=== PATIENT | male | born 1960 | race Caucasian/White ===

== ENCOUNTER 2018-11-26 06:05 | Observation (INO) | payer BC ==
[~2018-11-26] VITALS: Ht 175.3 cm; Wt 78.6 kg
[~2018-11-26 06:05] MED LIST: MELOXICAM7.5 MG PO; PANTOPRAZOLE SO40 MG PO
[2018-11-26] MEDS ORDERED: GENTAMICIN 120MG/NS 100ML 100 ML ONE (07:10)
[2018-11-26] MEDS ORDERED: CLINDAMYCIN 300MG 50 ML IV ONE (07:10)
[2018-11-26] MEDS ORDERED: FENTANYL CITRATE/PF 100MCG/2 ML INJ ONE ×3 (08:02→18:43)
[2018-11-26] MEDS ORDERED: HYDROMORPHONE 2MG/ML 2 MG/ML ML ONE (08:16)
[2018-11-26] MEDS ORDERED: BUPIVACAINE 0.25%/EPI 30ML SDV INJ ONE (08:54)
[2018-11-26] MEDS ORDERED: BUPIVACAINE LIPOSOME/PF 266 MG/20 ML IJ ONE (08:55)
[2018-11-26] MEDS ORDERED: LIDOCAINE JELLY 2% 10ML URO-JET ONE (08:55)
[2018-11-26] MEDS ORDERED: LIDOCAINE HCL 1% 30ML-PF VIAL ONE (08:55)
[2018-11-26] MEDS ORDERED: HYDROMORPHONE 1MG/1ML INJ IV PRN (11:30)
[2018-11-26] MEDS ORDERED: HYDROCODONE/APAP 7.5MG-325MG 1 EA TAB PO PRN (11:30)
[2018-11-26] MEDS ORDERED: PANTOPRAZOLE 40 MG 10ML VIAL IV SCH (11:30)
[2018-11-26] MEDS ORDERED: ONDANSETRON HCL INJ 2MG/ML 2ML 2 MG/ML VIAL IV PRN (11:30)
[2018-11-26] MEDS ORDERED: HYDROMORPHONE 2MG/ML 2 MG/ML ML IV PRN (12:15)
--- NOTE | 2018-11-26 12:19 | Operative Report ---
DATE OF PROCEDURE: 11/26/2018 SURGEON: Son Tenorio MD PREOPERATIVE DIAGNOSIS: Rectal bleeding, status post prostatic biopsy. POSTOPERATIVE DIAGNOSIS: Rectal bleeding, status post prostatic biopsy. OPERATION PERFORMED: Over-sewing of bleeder of the rectum. ANESTHESIA: General. COMPLICATIONS: None. ESTIMATED BLOOD LOSS: Minimal DESCRIPTION OF PROCEDURE: With the patient lying in bed in the lithotomy position under good general anesthesia, the perineum was prepped with Betadine solution and draped in the usual manner. Examination of the rectum at this point revealed the presence of a potential clot in the rectal vault, so all of this was aspirated. Examination revealed immediately that around the 1 o'clock position, there was a small arterial bleeder coming from one of the puncture sites of the prostate biopsy. There was no bleeding coming from any of the hemorrhoids or anything this was coming from the rectal mucosa, probably a submucosal arterial bleeder of the rectum. This was clearly isolated and visualized, and he was then oversewn with a [id number] ligature of 0 Vicryl. There was a couple of other puncture sites to the right and the left of the bleeder and we decided to oversew these to prevent any kind of bleeding that could occur in a submucosal space and this was similarly oversewn with 0 Vicryl. After this was done, hemostasis was ascertained. We waited a few minutes and make sure there was absolutely no other bleeding. The rectal vault was then washed out with saline and no further bleeding was identified anywhere else. A Gelfoam pack impregnated with Xylocaine was placed. A complete anorectal block with 0.25% Marcaine and 1% lidocaine had been performed previously. A dressing was applied. The sponge, lap, and needle counts were correct. The patient tolerated the procedure well and returned to the recovery room in stable condition. Son Tenorio MD JLR/MODL /[id number]
[2018-11-26] MEDS: DEXTROSE 5%/LACTATED RINGERS 1,000 ML IV SCH ×2 (12:27→20:19)
[2018-11-26 12:28] VITALS: BP 146/79
[2018-11-26 12:32] VITALS: BP 146/79
--- NOTE | 2018-11-26 12:42 | NUR ---
patient received from OR via stretcher. see admit assess. D5LR at 100cc/hr. vitals stable with no distress. family at BS. patient DTV. no bleeding from site at this time.
[2018-11-26] MEDS: CEFOXITIN 1GM/ D5W 50ML 50 ML IV SCH ×2 (12:57→17:13)
[2018-11-26] MEDS ORDERED: MIDAZOLAM HCL 2 MG/2 ML VIAL ONE ×2 (13:53→18:43)
--- NOTE | 2018-11-26 14:10 | Operative Report ---
DATE OF PROCEDURE: 11/26/2018 SURGEON: Isaias Loyd MD PREOPERATIVE DIAGNOSIS: Elevated PSA of 4.4. POSTOPERATIVE DIAGNOSIS: Elevated PSA of 4.4. PROCEDURES: 1. Prostate ultrasound. 2. Ultrasound needle guidance biopsy. 3. Needle biopsy of prostate, 12 cores. ANESTHESIA: General. ESTIMATED BLOOD LOSS: Initially 5 mL, later approximately 150 mL. INDICATIONS FOR PROCEDURE: Mr. Santoro is a 58-year-old male patient with a history of elevated PSA on repeat attempts. He and I had an extensive discussion of alternatives, risks, and benefits of doing nothing, prostate biopsy. He voiced understanding of the options, alternatives, risks, and benefits including, but not limited to pain, bleeding, infection, reoperation, damage to adjacent structures, blood clots, [place], stroke, and even . He elected to proceed. PROCEDURE IN DETAIL: After informed consent was obtained, the patient was taken to the operative suite. He had not been taking any blood thinners. He received prophylactic antibiotics and had undergone a Fleets enema. He was taken to the operative suite and placed supine on the operating table, underwent MAC anesthesia. He was then placed in left lateral decubitus position in standard fashion for prostate ultrasound. Prostate ultrasound: A transrectal ultrasound probe was inserted rectally with a plethora of lubrication. Prostate ultrasound was performed revealing a volume of 60 mL. No calcifications seen. No hypoechoic areas. Seminal vesicles appear normal. Impression, BPH. Ultrasound guidance: Utilizing the ultrasound, the tech guided the prostate biopsies. Needle biopsy of prostate: A 12-core biopsy approach was performed and sent as sextant samples. The patient tolerated the procedure well. At the cessation of my procedure, the patient has minimal bleeding, however, he was hypotensive and was called approximately 10 minutes after the procedure, the patient had been profusely bleeding with a blood pressure of 160/118. General Surgery was consulted at the time of dictation. The patient was in the PACU stable. Isaias Loyd MD ES/MODL /[id number]
[2018-11-26 16:22] VITALS: BP 131/84
[2018-11-26] MEDS ORDERED: SUCCINYLCHOLINE 200 MG/10 ML SYR ONE (17:25)
[2018-11-26] MEDS ORDERED: PROPOFOL IV EMULSION 10 MG/ML 20 ML VIAL ONE ×2 (17:25→17:57)
[2018-11-26] MEDS ORDERED: GLYCOPYRROLATE INJ 1MG/ 5 ML SYR ONE (17:25)
[2018-11-26] MEDS ORDERED: ONDANSETRON HCL INJ 2MG/ML 2ML 2 MG/ML VIAL ONE (17:25)
[2018-11-26] MEDS ORDERED: LIDOCAINE HCL 2% LOCAL INJ 5 ML SDV VIAL INJ ONE ×2 (17:25→17:57)
[2018-11-26] MEDS ORDERED: DEXAMETHASONE SOD PHOS INJ 4 MG/ML VIAL ONE (17:25)
[2018-11-26] MEDS ORDERED: SEVOFLURANE INHAL SOLN 250 ML PEN BTL ONE (17:25)
[2018-11-26] MEDS: DOCUSATE SODIUM 100 MG CAP PO SCH (17:36)
[2018-11-26 19:15] VITALS: BP 131/84
[2018-11-26 20:00] VITALS: BP 133/86
[2018-11-27] VITALS: BP 132/86
[2018-11-27 04:00] VITALS: BP 132/75
--- NOTE | 2018-11-27 06:55 | NUR ---
rounded with car shifter nurse, patient aware of change and in no distress. call calvin within reach and bed in lowest position.
[2018-11-27 08:20] VITALS: BP 138/82
[2018-11-27] MEDS: DOCUSATE SODIUM 100 MG CAP PO SCH (08:20)
[2018-11-27 08:30] VITALS: BP 138/82
--- NOTE | 2018-11-27 09:15 | NUR ---
patient alert and oriented. discharge instructions given at this time, patient verbalized understanding. IV discontinued at this time, catheter in tact and small dressing applied. Patient refused wheelchair assistance but will be escorted from unit to personal auto for to drive home.
== END 2018-11-27 09:15 | disposition home or self-care (01) ==
LOC: OR 06:05 → PACU V 11:31 → IMCU 12:06
PROVIDERS: ADMIT Urology; ATTEND Urology
DX: R97.20 Elevated prostate specific antigen [PSA] (principal); E29.1 Testicular hypofunction; N43.40 Spermatocele of epididymis, unspecified; N40.1 Benign prostatic hyperplasia with lower urinary tract symptoms; R35.1 Nocturia; I10 Essential (primary) hypertension; K40.90 Unilateral inguinal hernia, without obstruction or gangrene, not specified as recurrent; K21.9 Gastro-esophageal reflux disease without esophagitis; K62.5 Hemorrhage of anus and rectum
CPT/HCPCS: 12001; 55700; 76872; 76942; 88305; 93005; C9113; G0378 ×2; J1100; J1170; J1580; J2001 ×2; J2250; J2405; J2704; J3490; J7121; 76998